=== PATIENT | female | born 1960 | race Caucasian/White ===

== ENCOUNTER 2017-08-25 19:15 | Emergency (ER) | payer BC, OTHER ==
[~2017-08-25] VITALS: Ht 160 cm; Wt 72.0 kg
[~2017-08-25 19:15] MED LIST: AUGMENTIN500 MG PO; CIPRO500 MG PO; DEXILANT30 MG PO; FLAGYL500 MG PO; FLEXERIL5 MG PO; FLORAJEN3 CAPS460 MG PO; FLORAJEN460 MG PO; NAPROSYN500 MG PO; NEXIUM20 MG PO; NO HOME MEDICATIONS; TRAMADOL HCL50 MG PO; ZANTAC150 MG PO
[2017-08-25 19:40] LABS: APPEARANCE CLEAR ((CLEAR)); BILIRUBIN NEGATIVE; BLOOD NEGATIVE; COLOR YELLOW ((YELLOW)); GLUCOSE (STRIP) NEGATIVE; KETONES NEGATIVE; LEUKOCYTES TRACE; NITRITE NEGATIVE; PROTEIN (STRIP) NEGATIVE; SPECIFIC GRAVITY 1.021 (1.000-1.030); UROBILINOGEN 0.2 MG/DL (0.2-1.0)
[2017-08-25 19:42] LABS: BACTERIA RARE /HPF; EPITHELIAL CELLS RARE /HPF; MUCUS TRACE /LPF; RED BLOOD CELLS 0-5 /HPF (0-5); UCUL ADDED? NO; WHITE BLOOD CELLS 0-5 /HPF (0-5)
[2017-08-25 20:08] LABS: HEMATOCRIT 39.6 % (36.0-46.0); HEMOGLOBIN 13.3 G/DL (11.9-15.5); MCH 30.6 PG (29.0-34.0); MCHC 33.6 G/DL (30.0-36.0); PLATELET COUNT 198 K/uL (156-360); RBC DIS.WIDTH-CV 12.8 % (11.8-14.6); RBC DIS.WIDTH-SD 42.9 % (39-53); RED BLOOD COUNT 4.35 M/uL (3.80-5.20); WHITE BLOOD COUNT 7.6 K/uL (4.1-10.2)
[2017-08-25 20:18] LABS: CHLORIDE 104 mEq/L (99-109); SODIUM 139 mEq/L (136-147)
[2017-08-25 20:20] LABS: GLUCOSE 92 mg/dL (70-99); TOTAL PROTEIN 7.5 g/dL (6.4-8.3)
[2017-08-25 20:22] LABS: TOTAL BILIRUBIN 0.4 mg/dL (0.0-1.0)
[2017-08-25 20:23] LABS: ALKALINE PHOSPHATASE 86 IU/L (3-129)
[2017-08-25 20:24] LABS: CREATININE 0.9 mg/dL (0.6-1.3); GFR ESTIMATE (CALCULATED) > 59 mL/min/
[2017-08-25 20:25] LABS: AST (GOT) 19 IU/L (2-34); UREA NITROGEN (BUN) 17 mg/dL (9-23)
[2017-08-25 20:27] LABS: ALT (GPT) 16 IU/L (3-49)
[2017-08-25] MEDS ORDERED: CIPRO500 MG PO (22:14)
[2017-08-25] MEDS ORDERED: NORCO 5/3251 TABLET PO (22:14)
[2017-08-25] MEDS ORDERED: FLAGYL500 MG PO (22:14)
[2017-08-25] MEDS ORDERED: ZOFRAN ODT4 MG PO (22:14)
[2017-08-25 22:31] VITALS: BP 136/72
== END 2017-08-25 22:32 | disposition home or self-care (01) ==
LOC: EME 19:15
DX: K57.92 Diverticulitis of intestine, part unspecified, without perforation or abscess without bleeding (principal); K58.9 Irritable bowel syndrome, unspecified; Z87.891 Personal history of nicotine dependence; Z88.2 Allergy status to sulfonamides; Z88.1 Allergy status to other antibiotic agents; Z88.0 Allergy status to penicillin; Z91.040 Latex allergy status
CPT/HCPCS: 74177; 80053; 81003; 85027; 99281; 99285; J7030